=== PATIENT | female | born 1945 | race Caucasian/White ===

== ENCOUNTER 2020-06-06 09:10 | Inpatient (IN) | payer MEDICAID ==
[~2020-06-06] VITALS: Ht 160 cm; Wt 118.9 kg
[2020-06-06] MEDS ORDERED: MORPHINE SULFATE 4 MG/ML SYR/VIAL IV ONE (10:00)
[2020-06-06] MEDS ORDERED: ONDANSETRON HCL 4 MG/2 ML VIAL IV ONE (10:00)
[2020-06-06 10:09] LABS: Urine Bacteria NONE SEEN /hpf (None Seen); Urine Blood Negative /uL (Negative); Urine Mucus FEW (None Seen); Urine Specific Gravity 1.015 (1.001-1.035); Urine WBC 1 /hpf (0 - 5)
[2020-06-06 10:13] LABS: Basophils # (auto) 0.1 10 ^3/uL (0-0.2); Basophils % (auto) 0.4 % (0.0-2.0); Eosinophils # (auto) 0.2 10 ^3/uL (0-0.8); Eosinophils % (auto) 1.3 % (0.0-7.0); Hematocrit 39.4 % (36.0-46.0); Hemoglobin 12.8 g/dL (12.2-16.2); Lymphocytes # (auto) 2.6 10 ^3/uL (0.4-5.4); Lymphocytes % (auto) 14.8 % (10.0-50.0); Mean Corpuscular Hemoglobin 28.2 pg (28.0-32.0); Mean Corpuscular Hgb Conc. 32.5 g/dL (32.0-36.0); Mean Corpuscular Volume 86.8 fL (80.0-100.0); Monocytes # (auto) 1.2 10 ^3/uL (0-1.3); Monocytes % (auto) 6.5 % (0.0-12.0); Neutrophils # (auto) 13.6 10 ^3/uL (1.6-8.6); Nucleated Red Blood Cells % 0.1 %; Platelet Count (auto) 375 10^3/uL (140-450); Red Blood Cells 4.54 10^6/uL (4.0-5.20); Red Cell Distribution Width 14.7 % (11.8-14.3); White Blood Cell 17.7 10^3/uL (4.4-10.8)
[2020-06-06 10:31] LABS: Albumin 3.2 g/dL (3.4-5.0); Anion Gap 11 (5-15); Blood Urea Nitrogen 17 mg/dL (7-18); Calcium 8.2 mg/dL (8.5-10.1); Carbon Dioxide 19 mmol/L (21-32); Chloride 109 mmol/L (98-107); Glucose 117 mg/dL (74-106); Potassium 4.1 mmol/L (3.5-5.1); Sodium 139 mmol/L (136-145)
[2020-06-06 10:36] LABS: Alanine Aminotransferase 16 U/L (13-56); Alkaline Phosphatase 102 U/L (45-117); Aspartate Aminotransferase 17 U/L (15-37); BUN/Creatinine Ratio 20.2; Bilirubin, Total 0.2 mg/dL (0.2-1.0); GFR African American 85 mL/min; GFR Non-African American 71 mL/min; INR 0.97 (0.9-1.15); Partial Thromboplastin Time 24.8 sec (23.0-31.2); Total Protein 6.5 g/dL (6.4-8.2)
[2020-06-06] MEDS ORDERED: cefTRIAXone 1GM/50ML D5W 50 ML IV ONE (11:00)
[2020-06-06] MEDS ORDERED: LACTULOSE 20Gm/30ML SOLN PO PRN (11:45)
[2020-06-06] MEDS ORDERED: TEMAZEPAM 15 MG CAP PO PRN (11:45)
[2020-06-06] MEDS ORDERED: ACETAMINOPHEN 500 MG TAB PO PRN (11:45)
[2020-06-06] MEDS ORDERED: ONDANSETRON HCL 4 MG/2 ML VIAL IV PRN (11:45)
[2020-06-06] MEDS: SODIUM CHLORIDE 0.9% 1,000 ML IV SCH ×2 (12:01→21:45)
[2020-06-06] MEDS: MORPHINE SULF INJ 2 MG/ML SYRINGE 1ML IV PRN ×2 (13:27→17:35)
[2020-06-06 16:30] VITALS: BP 132/57
[2020-06-06 22:00] VITALS: BP 109/51
[2020-06-07] MEDS: SODIUM CHLORIDE 0.9% 1,000 ML IV SCH ×2 (00:34→18:12)
[2020-06-07] MEDS: MORPHINE SULF INJ 2 MG/ML SYRINGE 1ML IV PRN ×3 (01:49→19:37)
[2020-06-07 05:00] VITALS: BP 166/64
[2020-06-07 09:00] VITALS: BP 138/61
[2020-06-07] MEDS ORDERED: ceFAZolin 1GM/50ML 100 ML IV ONE (11:20)
[2020-06-07] MEDS ORDERED: MIDAZOLAM HCL 1MG/1ML-2 ML VIAL ONE (11:29)
[2020-06-07] MEDS ORDERED: fentaNYL CITRATE 100 MCG/2 ML VL ONE (11:29)
[2020-06-07] MEDS ORDERED: TETRACAINE 1% INJ 2 ML VIAL IJ ONE (11:34)
[2020-06-07] MEDS ORDERED: DexAMETHasone SOD PHOS 10MG/1ML VIAL INJ ONE (11:50)
[2020-06-07] MEDS ORDERED: PROPOFOL 10 MG/ML 20 ML IV ONE (11:50)
[2020-06-07] MEDS ORDERED: SUCCINYLCHOLINE CHLORIDE 20 MG/ML 10ML VIAL IV ONE (12:21)
[2020-06-07] MEDS ORDERED: ETOMIDATE (2MG/ML) 20ML VIAL IV ONE (12:48)
[2020-06-07] MEDS ORDERED: MEPERIDINE HCL (50 MG/ML) 1 ML VIAL ONE (12:50)
[2020-06-07] MEDS ORDERED: MIDAZOLAM HCL 1MG/1ML-2 ML VIAL IV PRN ×2 (13:15→14:15)
[2020-06-07] MEDS ORDERED: ONDANSETRON HCL 4 MG/2 ML VIAL ONE (13:15)
[2020-06-07] MEDS ORDERED: ONDANSETRON HCL 4 MG/2 ML VIAL IV PRN ×2 (13:15→14:15)
[2020-06-07] MEDS ORDERED: MORPHINE SULFATE 4 MG/ML SYR/VIAL IV PRN ×2 (13:15→14:15)
[2020-06-07] MEDS ORDERED: LABETALOL HCL 5 MG/ML 4ML SYRINGE IV PRN ×2 (13:15→14:15)
[2020-06-07] MEDS ORDERED: HYDROmorphone HCL 2 MG/ML VL IV PRN (13:15)
[2020-06-07] MEDS ORDERED: hydrALAZINE HCL 20 MG/ML VL IV PRN ×2 (13:15→14:15)
[2020-06-07] MEDS ORDERED: ePHEDrine SULFATE 50 MG/ML AMP IV PRN ×2 (13:15→14:15)
[2020-06-07] MEDS ORDERED: ROPIVACAINE 0.5% (5MG/ML) 20ML AMPULE IJ ONE (13:29)
[2020-06-07] MEDS: HYDROmorphone HCL 2 MG/ML VL IV PRN ×2 (14:15→14:25)
[2020-06-07] MEDS: LACTATED RINGER'S 1,000 ML IV SCH (15:45)
[2020-06-07] MEDS: ceFAZolin 1GM/50ML 50 ML IV SCH ×2 (15:45→20:27)
[2020-06-07 16:40] VITALS: BP 139/73
[2020-06-07] MEDS: SODIUM CHLOR 0.9% PF (SALINE LOCK) 10ML VIAL/SYR IV SCH (19:38)
[2020-06-07 22:00] VITALS: BP 152/65
[2020-06-08] MEDS: LACTATED RINGER'S 1,000 ML IV SCH ×3 (00:15→20:15)
[2020-06-08] MEDS: ceFAZolin 1GM/50ML 50 ML IV SCH (02:17)
[2020-06-08] MEDS: SODIUM CHLORIDE 0.9% 1,000 ML IV SCH ×3 (02:19→23:49)
[2020-06-08 05:00] VITALS: BP 114/43
[2020-06-08] MEDS: SODIUM CHLOR 0.9% PF (SALINE LOCK) 10ML VIAL/SYR IV SCH ×3 (05:18→22:15)
[2020-06-08 06:16] LABS: Basophils # (auto) 0 10 ^3/uL (0-0.2); Basophils % (auto) 0.1 % (0.0-2.0); Eosinophils # (auto) 0 10 ^3/uL (0-0.8); Hematocrit 29.6 % (36.0-46.0); Hemoglobin 9.9 g/dL (12.2-16.2); Lymphocytes # (auto) 0.6 10 ^3/uL (0.4-5.4); Lymphocytes % (auto) 3.9 % (10.0-50.0); Mean Corpuscular Hemoglobin 29.1 pg (28.0-32.0); Mean Corpuscular Hgb Conc. 33.6 g/dL (32.0-36.0); Mean Corpuscular Volume 86.7 fL (80.0-100.0); Monocytes % (auto) 7.1 % (0.0-12.0); Neutrophils # (auto) 12.9 10 ^3/uL (1.6-8.6); Neutrophils % (auto) 88.9 % (37.0-80.0); Nucleated Red Blood Cells % 0.1 %; Platelet Count (auto) 238 10^3/uL (140-450); Red Blood Cells 3.42 10^6/uL (4.0-5.20); Red Cell Distribution Width 14.2 % (11.8-14.3); White Blood Cell 14.5 10^3/uL (4.4-10.8)
[2020-06-08 06:29] LABS: Potassium 4.4 mmol/L (3.5-5.1)
[2020-06-08 06:33] LABS: BUN/Creatinine Ratio 17.6; Calcium 8.3 mg/dL (8.5-10.1)
[2020-06-08] MEDS: traMADol HCL 50 MG TAB PO PRN ×2 (08:17→23:01)
[2020-06-08 08:40] VITALS: BP 137/79
[2020-06-08] MEDS: cefTRIAXone 1GM/50ML D5W 50 ML IV SCH (08:49)
[2020-06-08] MEDS: ENOXAPARIN SOD 40 MG/0.4 ML SYRINGE SC SCH (09:39)
[2020-06-08] MEDS: MORPHINE SULF INJ 2 MG/ML SYRINGE 1ML IV PRN ×2 (11:56→23:56)
[2020-06-08 12:24] VITALS: BP 152/77
[2020-06-08 16:45] VITALS: BP 139/72
[2020-06-08 22:05] VITALS: BP 143/68
[2020-06-09 05:12] VITALS: BP 150/67
[2020-06-09] MEDS: LACTATED RINGER'S 1,000 ML IV SCH (05:35)
[2020-06-09] MEDS: SODIUM CHLOR 0.9% PF (SALINE LOCK) 10ML VIAL/SYR IV SCH ×3 (05:35→22:00)
[2020-06-09 06:55] LABS: Basophils # (auto) 0.1 10 ^3/uL (0-0.2); Basophils % (auto) 0.4 % (0.0-2.0); Eosinophils # (auto) 0.1 10 ^3/uL (0-0.8); Eosinophils % (auto) 0.6 % (0.0-7.0); Hematocrit 33.8 % (36.0-46.0); Hemoglobin 11.1 g/dL (12.2-16.2); Lymphocytes # (auto) 1.3 10 ^3/uL (0.4-5.4); Lymphocytes % (auto) 7.9 % (10.0-50.0); Mean Corpuscular Hemoglobin 29.2 pg (28.0-32.0); Mean Corpuscular Hgb Conc. 32.7 g/dL (32.0-36.0); Mean Corpuscular Volume 89.1 fL (80.0-100.0); Monocytes # (auto) 1.2 10 ^3/uL (0-1.3); Monocytes % (auto) 7.4 % (0.0-12.0); Neutrophils # (auto) 13.5 10 ^3/uL (1.6-8.6); Neutrophils % (auto) 83.7 % (37.0-80.0); Nucleated Red Blood Cells % 0.1 %; Platelet Count (auto) 251 10^3/uL (140-450); Red Blood Cells 3.79 10^6/uL (4.0-5.20); Red Cell Distribution Width 14.6 % (11.8-14.3); White Blood Cell 16.2 10^3/uL (4.4-10.8)
[2020-06-09] MEDS: MORPHINE SULF INJ 2 MG/ML SYRINGE 1ML IV PRN (06:55)
[2020-06-09 09:00] VITALS: BP_SYST 124; BP_SYST 131; BP_DIAS 54; BP_DIAS 63
[2020-06-09] MEDS: ENOXAPARIN SOD 40 MG/0.4 ML SYRINGE SC SCH (09:30)
[2020-06-09] MEDS: cefTRIAXone 1GM/50ML D5W 50 ML IV SCH (09:30)
[2020-06-09] MEDS: B-COMPLEX W/ C & FOLIC ACID(NEPHROVITE TAB) PO SCH (09:30)
[2020-06-09] MEDS: SODIUM CHLORIDE 0.9% 1,000 ML IV SCH ×2 (09:45→17:01)
[2020-06-09 13:00] VITALS: BP_SYST 130; BP_SYST 131; BP_DIAS 51; BP_DIAS 60
[2020-06-09] MEDS: traMADol HCL 50 MG TAB PO PRN ×2 (13:26→20:05)
[2020-06-09 17:00] VITALS: BP 139/70
[2020-06-09 22:16] VITALS: BP 130/68
[2020-06-10] MEDS: traMADol HCL 50 MG TAB PO PRN ×3 (02:36→15:11)
[2020-06-10 05:10] VITALS: BP 130/77
[2020-06-10] MEDS: SODIUM CHLOR 0.9% PF (SALINE LOCK) 10ML VIAL/SYR IV SCH ×3 (06:27→21:35)
[2020-06-10] MEDS: SODIUM CHLORIDE 0.9% 1,000 ML IV SCH ×2 (06:28→15:45)
[2020-06-10 09:00] VITALS: BP 141/65
[2020-06-10] MEDS: cefTRIAXone 1GM/50ML D5W 50 ML IV SCH (09:00)
[2020-06-10] MEDS: ENOXAPARIN SOD 40 MG/0.4 ML SYRINGE SC SCH (09:52)
[2020-06-10] MEDS: B-COMPLEX W/ C & FOLIC ACID(NEPHROVITE TAB) PO SCH (09:52)
[2020-06-10 13:00] VITALS: BP 109/61
[2020-06-10 16:30] VITALS: BP 140/68
[2020-06-10 22:00] VITALS: BP_SYST 120; BP_SYST 154; BP_DIAS 61; BP_DIAS 77
[2020-06-11] MEDS: SODIUM CHLORIDE 0.9% 1,000 ML IV SCH ×2 (01:45→11:45)
[2020-06-11 05:00] VITALS: BP 139/75
[2020-06-11] MEDS: SODIUM CHLOR 0.9% PF (SALINE LOCK) 10ML VIAL/SYR IV SCH ×2 (06:00→14:00)
[2020-06-11] MEDS ORDERED: EPINEPHrine HCL 1 MG/1 ML AMP ONE (08:03)
[2020-06-11 09:23] VITALS: BP 142/91
[2020-06-11] MEDS: B-COMPLEX W/ C & FOLIC ACID(NEPHROVITE TAB) PO SCH (09:46)
[2020-06-11] MEDS: ENOXAPARIN SOD 40 MG/0.4 ML SYRINGE SC SCH (09:47)
[2020-06-11] MEDS: traMADol HCL 50 MG TAB PO PRN ×3 (09:47→16:44)
[2020-06-11 12:36] VITALS: BP 128/89
[2020-06-11 16:17] VITALS: BP 136/81
[2020-06-11 16:33] VITALS: BP 139/72
== END 2020-06-11 17:27 | DRG 481 ==
LOC: ER 09:10 → EDBD 09:10 → OVERFLOW 11:05 → CENTRAL 14:29
PROVIDERS: ADMIT Internal Medicine; ATTEND Family Medicine
PROC: 0QS736Z Reposition Left Upper Femur with Intramedullary Internal Fixation Device, Percutaneous Approach (ICD-10-PCS; principal; 2020-06-07 11:50)
DX: S72.142A Displaced intertrochanteric fracture of left femur, initial encounter for closed fracture (principal); E44.1 Mild protein-calorie malnutrition; Z68.42 Body mass index [BMI] 45.0-49.9, adult; N39.0 Urinary tract infection, site not specified; W07.XXXA Fall from chair, initial encounter; D72.829 Elevated white blood cell count, unspecified; J32.9 Chronic sinusitis, unspecified; E66.01 Morbid (severe) obesity due to excess calories; Z20.822 Contact with and (suspected) exposure to COVID-19; R73.9 Hyperglycemia, unspecified; M17.10 Unilateral primary osteoarthritis, unspecified knee; Z82.49 Family history of ischemic heart disease and other diseases of the circulatory system; Z83.3 Family history of diabetes mellitus; Z98.84 Bariatric surgery status; Z90.49 Acquired absence of other specified parts of digestive tract; Y93.89 Activity, other specified; Y92.89 Other specified places as the place of occurrence of the external cause; Y99.8 Other external cause status
CPT/HCPCS: 36415; 71045; 72192; 73502; 80048; 80053; 81001; 84484; 85025; 85610; 85730; 86850; 86900; 86901; 87086; 87426; 93306; 96365; 96375; 97110; 97116; 97530; A4565; C1713; G0378; J0171; J0330; J0690; J0696; J1100; J2250; J2405; J2704